=== PATIENT | male | born 2000 | race Native Hawaiian/Other Pacific Islander ===

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

== ENCOUNTER 2020-10-13 10:04 | Emergency (ER) | payer OTHER | END 2020-10-13 12:20 | disposition home or self-care (01) | LOC: ED 10:04 | PROC: 3E1B78Z Irrigation of Ear using Irrigating Substance, Via Natural or Artificial Opening (ICD-10-PCS; principal; 2020-10-13) | DX: H92.03 Otalgia, bilateral (principal); H61.23 Impacted cerumen, bilateral | CPT/HCPCS: 99283 ==